=== PATIENT | male | born 1995 | race Caucasian/White ===

== ENCOUNTER 2017-02-14 14:54 | Emergency (ER) | payer OTHER ==
[2017-02-14 15:02] VITALS: BMI 25.8
[2017-02-14] MEDS ORDERED: ACETAMINOPHEN 325 MG TABLET (FP) PO ONE (15:05)
--- NOTE | 2017-02-14 15:59 | PDOC ---
History of Present Illness - General Chief Complaint: Cold Symptoms Stated Complaint: FEVER, TONSILITIS, DIZZINESS Time Seen by Provider: 02/14/17 15:40 History Source: Patient, Family - History of Present Illness Timing/Duration: reports: yesterday Associated Symptoms: reports: fever/chills, sore throat. denies: cough, facial pain, nasal congestion, shortness of breath Past History - Past Medical History Allergies/Adverse Reactions: Allergies Allergy/AdvReac Type Severity Reaction Status Date / Time No Known Allergies Allergy Verified 02/14/17 15:00 Home Medications: Ambulatory Orders Azithromycin [Zithromax 250mg Tablets -] 250 mg PO UTDICT #6 tab 02/14/17 Ibuprofen [Motrin -] 800 mg PO Q6H #30 tablet 02/14/17 Asthma: Yes (as an ) - Surgical History Appendectomy: Yes - Immunization History Immunization Up to Date: Yes - Psycho/Social/Smoking Cessation Hx Anxiety: No Suicidal Ideation: No Smoking Status: No Smoking History: Never smoked Have you smoked in the past 12 months: No Number of Cigarettes Smoked Daily: 0 Hx Alcohol Use: No Drug/Substance Use Hx: No Substance Use Type: None Review of Systems - Review of Systems Constitutional: Yes: Fever HEENTM: Yes: Throat Pain. No: Ear Pain Respiratory: No: Cough, Shortness of Breath Cardiac (ROS): No: Chest Pain ABD/GI: No: Diarrhea, Nausea, Vomiting : No: Burning, Dysuria, Discharge, Frequency, Flank Pain Musculoskeletal: Yes: Back Pain *Physical Exam - Vital Signs Last Vital Signs Temp Pulse Resp BP Pulse Ox 102.9 F H 106 H 18 112/82 99 02/14/17 15:00 02/14/17 15:00 02/14/17 15:00 02/14/17 15:00 02/14/17 15:00 - Physical Exam General Appearance: Yes: Appropriately Dressed. No: Apparent Distress HEENT: positive: EOMI, Normal Voice, TMs Normal, Tonsillar Exudate (w/ b/l tonsillar enlargement, no uvular deviation). negative: Scleral Icterus (R), Scleral Icterus (L) Neck: positive: Supple. negative: Lymphadenopathy (R), Lymphadenopathy (L) Respiratory/Chest: positive: Lungs Clear, Normal Breath Sounds. negative: Respiratory Distress Cardiovascular: positive: Regular Rate, S1, S2 Gastrointestinal/Abdominal: positive: Soft. negative: Tender Musculoskeletal: negative: CVA Tenderness Integumentary: positive: Dry, Warm Neurologic: positive: Fully Oriented, Alert, Normal Mood/Affect ED Treatment Course - LABORATORY CBC & Chemistry Diagram: 02/14/17 17:15 02/14/17 17:15 - Medications Given in the ED: ED Medications Discontinued Medications Generic Name Dose Route Start Last Admin Trade Name Yara PRN Reason Stop Dose Admin Acetaminophen 650 mg 02/14/17 15:05 02/14/17 15:06 Tylenol - PO 02/14/17 15:06 650 mg NOW ONE Administration Medical Decision Making - Medical Decision Making 02/14/17 15:47 02/14/17 16:13 21-year-old male, h/o asthma in childhood, mono several years ago, here with sore throat with fever, malaise and body aches including lower back pain since yesterday. No neck stiffness, PENA, dizziness or photophobia. Denies sick contacts. Also c/o ?dark urine. No urinary frequency, hematuria, flank pain, abd pain, penile discharge, n/v. No h/o STDs. Denies new sexual partner See exam Presumed strep Febrile to 102 w/ b/l tonsillar enlargement w/ exudates No e/o FLOW COORDINATOR -antipyretic -rapid strep ? Dark urine No penile dc No h/o stds No h/o renal stone No cvat and abd benign -ua/cx/gc/chlam pending 02/14/17 18:04 Rapid strep and flu neg. Wbc 16 w/ isolated bili of 1.5, mono still pending, ua neg for infxn and rest of labs unremarkable. Will rpt vitals 02/14/17 16:45 02/14/17 16:48 02/14/17 18:02 02/14/17 18:04 02/14/17 18:32 Vital improved and pt reports feeling better. Cowley still pending, family does not wish to wait for results. No other obvious source of infxn at this time, abd remains benign (of note, pt had appendectomy), chest/lungs clear and no cp/ sob or s/o meningismus. Case d/w Dr Ashraf who rec abx for possible strep given that throat cx still pending. 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 02/14/17 18:44 02/14/17 18:49 *DC/Admit/Observation/Transfer Diagnosis at time of Disposition: Pharyngitis Qualifiers: Pharyngitis/tonsillitis etiology: unspecified etiology Qualified Code(s): J02.9 - Acute pharyngitis, unspecified - Discharge Dispostion Disposition: HOME Condition at time of disposition: Improved - Prescriptions Prescriptions: Ibuprofen [Motrin -] 800 mg PO Q6H #30 tablet Azithromycin [Zithromax 250mg Tablets -] 250 mg PO UTDICT #6 tab - Referrals Referrals: Brennon Chapman MD [Primary Care Provider] - - Patient Instructions Printed Discharge Instructions: DI for Viral Syndrome, Strep Throat Additional Instructions: You were treated w/ azithromycin in the case that your throat culture comes back positive in 2 days. Rest, drink plenty of fluids and take azithromycin antibitiocs and motrin. Please call ED tomorrow at [phone] for mono results and if positive, rest, drink fluids, motrin for pain/fever and no sports for 3 weeks to avoid splenic rupture Please follow up with your PMD Return to ED for worsening of symptoms
[2017-02-14] MEDS ORDERED: IBUPROFEN 400 MG TABLET (FP) PO ONE ×2 (16:00→16:12)
[2017-02-14 16:40] LABS: URINE APPEARANCE CLEAR; URINE BILIRUBIN NEGATIVE (NEGATIVE); URINE COLOR DKYELLOW; URINE GLUCOSE (UA) NEGATIVE (NEGATIVE); URINE KETONE TRACE (NEGATIVE); URINE LEUK ESTERASE NEGATIVE (NEGATIVE); URINE NITRITE NEGATIVE (NEGATIVE); URINE UROBILINOGEN 4.0 E.U/dl E.U./dl (0.2-1.0)
[2017-02-14 16:41] LABS: URINE BLOOD 1+ (NEGATIVE); URINE PROTEIN 2+ (NEGATIVE)
[2017-02-14 16:42] LABS: URINE MUCUS RARE; URINE RBC 27 /hpf (0-3); URINE WBC 10 /hpf (3-5)
[2017-02-14 17:23] LABS: BASOPHIL 0.3 % (0-2.0); EOSINOPHIL 0.1 % (0-4.5); MCH 29.9 pg (25.7-33.7); MCHC 34.2 g/dl (32.0-35.9); MEAN CELL VOLUME 87.3 fl (80-96); MEAN PLT VOLUME 7.6 fl (7.5-11.1); NEUTROPHILS 85.1 % (42.8-82.8); PLATELET COUNT 223 K/MM3 (134-434); RDW 14.2 % (11.9-15.9); WHITE BLOOD COUNT 16.1 K/mm3 (4.0-10.0)
[2017-02-14 17:58] LABS: ALBUMIN 4.4 g/dl (3.4-5.0); ANION GAP 10 (8-16); CO2 26 mmol/L (21-32); CREATININE 1.1 mg/dL (0.7-1.3); GLUCOSE,RANDOM 95 mg/dL (74-106); SGOT/AST 12 U/L (15-37); SGPT/ALT 15 U/L (12-78)
[2017-02-14 18:00] LABS: ALK PHOS 87 U/L (45-117); BILIRUBIN,TOTAL 1.5 mg/dL (0.2-1.0); TOT PROT 7.7 g/dl (6.4-8.2)
[2017-02-14 18:41] VITALS: BP 129/75; PULSE 74; TEMP 98.1
== END 2017-02-14 18:56 | disposition home or self-care (01) ==
LOC: JER 14:54
DX: J02.9 Acute pharyngitis, unspecified (principal)
CPT/HCPCS: 36415; 80053; 81003; 81015; 85025; 86308; 87070; 87086; 87430; 87491; 87591; 87804; 99281-25

== ENCOUNTER 2017-11-25 16:08 | Emergency (ER) | payer OTHER ==
--- NOTE | 2017-11-25 16:25 | PDOC ---
Rapid Medical Evaluation Chief Complaint: Cold Symptoms Time Seen by Provider: 11/25/17 16:21 Medical Evaluation: Allergies Allergy/AdvReac Type Severity Reaction Status Date / Time No Known Allergies Allergy Verified 02/14/17 15:00 11/25/17 16:21 I have performed a brief in-person evaluation of this patient. The patient presents with a chief complaint of: Cough, fever last night, Tmax of 104. Temp 99.5 now took theraflu. Symptoms for 4 days. Pertinent physical exam findings: Lungs clear, nose clear, posterior pharynx with no erythema or exudate. I have ordered the following: None The patient will proceed to [facility] for further evaluation.
[2017-11-25 16:26] VITALS: BP 123/72; PULSE 74; TEMP 99.5; BMI 21.7
[2017-11-25] MEDS ORDERED: IBUPROFEN 600 MG TABLET (FP) PO ONE (16:39)
[2017-11-25] MEDS ORDERED: ALBUTEROL SO4 0.083% IH SOL 2.5 MG/3 ML VIAL.NEB. NEB PRN (16:39)
--- NOTE | 2017-11-25 16:45 | PDOC ---
History of Present Illness - General Chief Complaint: Cold Symptoms Stated Complaint: COUGHING Time Seen by Provider: 11/25/17 16:21 History Source: Patient Exam Limitations: No Limitations - History of Present Illness Initial Comments: 11/25/17 16:39 21 yr male with cough sore throat body aches for 3 days. no fever no sick contacts. Past History - Past Medical History Allergies/Adverse Reactions: Allergies Allergy/AdvReac Type Severity Reaction Status Date / Time No Known Allergies Allergy Verified 02/14/17 15:00 Home Medications: Ambulatory Orders Albuterol Sulfate Inhaler - [Ventolin HFA Inhaler -] 1 - 2 inh PO QID #1 inhaler 11/25/17 Asthma: Yes (as an infant) COPD: No Other medical history: bronchitis - Surgical History Appendectomy: Yes - Immunization History Immunization Up to Date: Yes - Suicide/Smoking/Psychosocial Hx Smoking Status: No Smoking History: Never smoked Have you smoked in the past 12 months: No Number of Cigarettes Smoked Daily: 0 Information on smoking cessation initiated: No Hx Alcohol Use: No Drug/Substance Use Hx: No Substance Use Type: None Respiratory Specific PMHX - Complaint Specific PMHX Bronchitis: Yes Review of Systems - Review of Systems Able to Perform ROS?: Yes Is the patient limited Cypriot proficient: No Constitutional: No: Symptoms Reported HEENTM: Yes: Throat Pain. No: Symptoms Reported Respiratory: Yes: Symptoms reported, Cough Cardiac (ROS): No: Symptoms Reported ABD/GI: No: Symptoms Reported : No: Symptoms Reported Musculoskeletal: No: Symptoms Reported Integumentary: No: Symptoms Reported *Physical Exam - Vital Signs Last Vital Signs Temp Pulse Resp BP Pulse Ox 99.5 F 74 17 123/72 99 11/25/17 16:21 11/25/17 16:21 11/25/17 16:21 11/25/17 16:21 11/25/17 16:21 - Physical Exam General Appearance: Yes: Nourished, Appropriately Dressed HEENT: positive: EOMI, MEAGAN, Normal ENT Inspection, TMs Normal, Pharynx Normal Neck: positive: Supple. negative: Lymphadenopathy (R), Lymphadenopathy (L) Respiratory/Chest: positive: Lungs Clear, Normal Breath Sounds. negative: Chest Tender, Rhonchi, Stridor, Wheezing Cardiovascular: positive: Regular Rhythm, Regular Rate Gastrointestinal/Abdominal: positive: Normal Bowel Sounds, Soft Musculoskeletal: positive: Normal Inspection Extremity: positive: Normal Capillary Refill, Normal Inspection Integumentary: positive: Normal Color, Dry, Warm Neurologic: positive: Fully Oriented, Alert, Normal Mood/Affect, Normal Response , Motor Strength /5 Medical Decision Making - Medical Decision Making 11/25/17 16:47 cc: cough sore throat body aches afebrile non toxic lungs CTA will check rapid strep *DC/Admit/Observation/Transfer Diagnosis at time of Disposition: Upper respiratory infection, viral - Discharge Dispostion Disposition: HOME Condition at time of disposition: Good - Prescriptions Prescriptions: Albuterol Sulfate Inhaler - [Ventolin HFA Inhaler -] 1 - 2 inh PO QID #1 inhaler - Referrals Referrals: Brennon Chapman MD [Primary Care Provider] - - Patient Instructions Additional Instructions: drink pleanty of fluids take ibuprofen 600mg every 6hrs for fever, body aches or pain use the inhaler for coughing as directed and needed increase vitamin C and zinc in your diet gargle with warm salt water 4-5 times a day can help with sore throat negative strep swab today - Post Discharge Activity
== END 2017-11-25 17:48 | disposition home or self-care (01) ==
LOC: JERFT 16:08
PROC: 3E0F7GC Introduction of Other Therapeutic Substance into Respiratory Tract, Via Natural or Artificial Opening (ICD-10-PCS; principal; 2017-11-25)
DX: J06.9 Acute upper respiratory infection, unspecified (principal)
CPT/HCPCS: 87070; 87430; 94640; 99281-25

== ENCOUNTER 2018-10-24 22:17 | Emergency (ER) | payer OTHER ==
[2018-10-24 22:30] VITALS: BP 135/81; PULSE 70; TEMP 98.5; BMI 25.0
--- NOTE | 2018-10-24 23:54 | PDOC ---
History of Present Illness - General History Source: Patient Exam Limitations: No Limitations - History of Present Illness Initial Comments: 10/24/18 23:55 The patient is a 22 year old male, with no significant past medical history, who presents to the emergency department with, 2 weeks of a cough. Patient was evaluated at urgent care for a runny nose, cough, and congestion 2 weeks ago where he had a negative strep and flu test. Patient endorses intermittent fevers with a productive cough, headache, and body aches in the mornings. 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 He denies any recent dizziness. He denies any recent nausea, vomit, diarrhea or constipation. He denies any recent dysuria, frequency, urgency or hematuria. Allergies: NKA Past surgical history: Appendectomy. Social History: Former smoker. Denies EtOH use and recreational drug use. Primary Care Physician: Dr. Brennon Chapman <Aleksandar Eduardo - Last Filed: 10/24/18 23:55> <Antonieta Ashraf - Last Filed: 10/25/18 00:42> - General Chief Complaint: Respiratory Stated Complaint: COLD SYMPTOMS Time Seen by Provider: 10/24/18 23:15 Past History <Aleksandar Eduardo - Last Filed: 10/24/18 23:55> - Past Medical History Asthma: Yes (as an ) COPD: No - Surgical History Appendectomy: Yes - Immunization History Immunization Up to Date: Yes - Suicide/Smoking/Psychosocial Hx Smoking Status: No Smoking History: Never smoked Have you smoked in the past 12 months: No Number of Cigarettes Smoked Daily: 0 Information on smoking cessation initiated: No Hx Alcohol Use: No Drug/Substance Use Hx: No Substance Use Type: None <Antonieta Ashraf - Last Filed: 10/25/18 00:42> - Past Medical History Allergies/Adverse Reactions: Allergies Allergy/AdvReac Type Severity Reaction Status Date / Time No Known Allergies Allergy Verified 10/24/18 22:30 Home Medications: Ambulatory Orders Albuterol Sulfate Inhaler - [Ventolin HFA Inhaler -] 1 - 2 inh PO QID #1 inhaler 11/25/17 Respiratory Specific PMHX - Complaint Specific PMHX Bronchitis: Yes <Antonieta Ashraf - Last Filed: 10/25/18 00:42> Review of Systems - Review of Systems Able to Perform ROS?: Yes Comments:: 10/24/18 23:55 CONSTITUTIONAL: Present: Fever. Body aches. EYES: Absent: visual changes ENT: Absent: ear pain, no sore throat CARDIOVASCULAR: Absent: chest pain, no palpitations RESPIRATORY: Present: Cough. GI: Absent: abdominal pain, no nausea, no vomiting, no constipation, no diarrhea GENITOURINARY: Absent: dysuria, no frequency, no hematuria MUSKULOSKELETAL: Absent: back pain, no arthralgia, no myalgia SKIN: Absent: rash NEURO: Present: headache All Other Systems: Reviewed and Negative <Aleksandar Eduardo - Last Filed: 10/24/18 23:55> *Physical Exam - Vital Signs Last Vital Signs Temp Pulse Resp BP Pulse Ox 98.5 F 70 16 135/81 100 10/24/18 22:28 10/24/18 22:28 10/24/18 22:28 10/24/18 22:28 10/24/18 22:28 - Physical Exam Comments: 10/24/18 23:56 GENERAL: Well developed, well nourished. Awake and alert. No acute distress. HEENT: Normocephalic, atraumatic. PERRLA, EOMI. No conjunctival pallor. Sclera are non- icteric. Moist mucous membranes. Oropharynx is clear. NECK: Supple. Full ROM. No JVD. Carotid pulses 2+ and symmetric, without bruits. No thyromegaly. No lymphadenopathy. CARDIOVASCULAR: Regular rate and rhythm. No murmurs, rubs, or gallops. Distal pulses are 2+ and symmetric. PULMONARY: No evidence of respiratory distress. Lungs clear to auscultation bilaterally. No wheezing, rales or rhonchi. ABDOMINAL: Soft. Non-tender. Non-distended. No rebound or guarding. No organomegaly. Normoactive bowel sounds. MUSCULOSKELETAL Normal range of motion at all joints. No bony deformities or tenderness. No CVA tenderness. EXTREMITIES: No cyanosis. No clubbing. No edema. No calf tenderness. SKIN: Warm and dry. Normal capillary refill. No rashes. No jaundice. NEUROLOGICAL: Alert, awake, appropriate. Cranial nerves 2-12 intact. No focal neurological deficits. Gait is normal without ataxia. PSYCHIATRIC: Cooperative. Good eye contact. Appropriate mood and affect. <Aleksandar Eduardo - Last Filed: 10/24/18 23:55> - Vital Signs Last Vital Signs Temp Pulse Resp BP Pulse Ox 98.5 F 70 16 135/81 100 10/24/18 22:28 10/24/18 22:28 10/24/18 22:28 10/24/18 22:28 10/24/18 22:28 <Antonieta Ashraf - Last Filed: 10/25/18 00:42> Moderate Sedation - Procedure Monitoring Vital Signs: Procedure Monitoring Vital Signs Temperature 98.5 F 10/24/18 22:28 Pulse Rate 70 10/24/18 22:28 Respiratory Rate 16 10/24/18 22:28 Blood Pressure 135/81 10/24/18 22:28 O2 Sat by Pulse Oximetry (%) 100 10/24/18 22:28 <Aleksandar Eduardo - Last Filed: 10/24/18 23:55> - Procedure Monitoring Vital Signs: Procedure Monitoring Vital Signs Temperature 98.5 F 10/24/18 22:28 Pulse Rate 70 10/24/18 22:28 Respiratory Rate 16 10/24/18 22:28 Blood Pressure 135/81 10/24/18 22:28 O2 Sat by Pulse Oximetry (%) 100 10/24/18 22:28 <Antonieta Ashraf - Last Filed: 10/25/18 00:42> ED Treatment Course - RADIOLOGY Radiology Studies Ordered: Category Date Time Status CHEST PA & LAT [RAD] Stat Radiology 10/24/18 23:26 Taken <Antonieta Ashraf - Last Filed: 10/25/18 00:42> *DC/Admit/Observation/Transfer - Attestations Scribe Attestion: 10/24/18 23:56 Documentation prepared by Aleksandar Eduardo, acting as medical housekeeper for Antonieta Ashraf MD. <Aleksandar Eduardo - Last Filed: 10/24/18 23:55> <Antonieta Ashraf - Last Filed: 10/25/18 00:42> Diagnosis at time of Disposition: Upper respiratory infection, viral, Cough - Discharge Dispostion Disposition: HOME Condition at time of disposition: Good - Referrals Referrals: Brennon Chapman MD [Primary Care Provider] - - Patient Instructions Printed Discharge Instructions: DI for Cough -- Adult Additional Instructions: Please drink plenty of fluid,stay hydrated Take tylenol or motrin for body aches Take OTC nasal decongestants Use inhaler for any wheezing Follow up with Dr Chapman Return for any signs of respiratory distress - Post Discharge Activity
== END 2018-10-25 01:06 | disposition home or self-care (01) ==
LOC: JERFT 22:17 → JER 22:17
DX: J06.9 Acute upper respiratory infection, unspecified (principal); B97.89 Other viral agents as the cause of diseases classified elsewhere
CPT/HCPCS: 71046-TC-FY; 99281-25

== ENCOUNTER 2021-10-12 10:50 | Emergency (ER) | payer OTHER ==
[2021-10-12 11:13] VITALS: BP 125/82; PULSE 60; TEMP 97.6; BMI 34.4
[2021-10-12] MEDS ORDERED: DEXAMETHASONE LIQUID 0.5 MG/5 ML PO ONE (12:36)
[2021-10-12] MEDS ORDERED: DEXAMETHASONE SOD PHOSPHATE 10 MG/1 ML VIAL ONE (12:38)
== END 2021-10-12 12:42 | disposition home or self-care (01) ==
LOC: JERFT 10:50
DX: M94.0 Chondrocostal junction syndrome [Tietze] (principal); J98.01 Acute bronchospasm
CPT/HCPCS: 71046-TC-FY; 93005; 93010; 99284-25

== ENCOUNTER 2022-01-05 09:28 | Emergency (ER) | payer OTHER ==
[2022-01-05 09:33] VITALS: BP 121/80; PULSE 72; TEMP 98.4; BMI 31.9
[2022-01-05] MEDS ORDERED: IBUPROFEN 400 MG TABLET (FP) PO ONE ×2 (09:57→10:20)
== END 2022-01-05 10:53 | disposition home or self-care (01) ==
LOC: JERFT 09:28
DX: S33.5XXA Sprain of ligaments of lumbar spine, initial encounter (principal); S46.911A Strain of unspecified muscle, fascia and tendon at shoulder and upper arm level, right arm, initial encounter
CPT/HCPCS: 71111-TC-FY; 99284-25

== ENCOUNTER 2023-10-11 10:03 | Emergency (ER) | payer OTHER ==
[2023-10-11 10:14] VITALS: BP 153/82; PULSE 74; RESP 20; TEMP 97.7; BMI 30.4
[2023-10-11] MEDS ORDERED: valACYclovir HCL 500 MG TABLET (FP) PO ONE (10:47)
[2023-10-11] MEDS ORDERED: predniSONE 20 MG TABLET (UD) PO ONE (10:48)
[2023-10-11] MEDS ORDERED: ACETAMINOPHEN 325 MG TABLET (FP) PO ONE (10:50)
[2023-10-11] MEDS ORDERED: ACETAMINOPHEN 1000 MG/100 ML BAG IVPB ONE (10:53)
[2023-10-11] MEDS ORDERED: valACYclovir HCL 500 MG TABLET (FP) ONE (10:53)
[2023-10-11] MEDS ORDERED: predniSONE 20 MG TABLET (UD) ONE (10:53)
[2023-10-11] MEDS ORDERED: METOCLOPRAMIDE HCL INJECTION 10 MG/2 ML VIAL IVPUSH ONE (10:54)
[2023-10-11] MEDS ORDERED: ARTIFICIAL TEARS (POLYVINYL ALCOHOL) OPTH DROPS OU ONE (10:54)
[2023-10-11] MEDS ORDERED: SODIUM CHLORIDE 0.9% 500 ML INFUS.BAG IV ONE (10:56)
[2023-10-11] MEDS ORDERED: METOCLOPRAMIDE HCL INJECTION 10 MG/2 ML VIAL ONE (11:02)
[2023-10-11] MEDS ORDERED: ACETAMINOPHEN INJECTION 100 ML IVPB ONE (11:03)
[2023-10-11 11:27] LABS: HEMATOCRIT 44.2 % (35.4-49); HEMOGLOBIN 14.8 GM/dL (11.7-16.9); MCHC 33.5 g/dl (32.0-35.9); MEAN CELL VOLUME 83.5 fl (80-96); MEAN PLT VOLUME 7.7 fl (7.5-11.1); PLATELET COUNT 305 10^3/uL (134-434); RDW 13.5 % (11.9-15.9); WHITE BLOOD COUNT 6.5 K/mm3 (4.0-10.0)
[2023-10-11 12:04] LABS: ALBUMIN 4.6 g/dl (3.4-5.0); BLOOD UREA NITROGEN 16.9 mg/dL (7-18); CALCIUM 9.8 mg/dL (8.5-10.1)
[2023-10-11 12:07] LABS: CREATININE 1.1 mg/dL (0.55-1.3)
[2023-10-11 12:09] LABS: BILIRUBIN,TOTAL 0.5 mg/dL (0.2-1); TOT PROT 8.1 g/dl (6.4-8.2)
== END 2023-10-11 13:09 | disposition home or self-care (01) ==
LOC: JER 10:03
PROC: 3E033NZ Introduction of Analgesics, Hypnotics, Sedatives into Peripheral Vein, Percutaneous Approach (ICD-10-PCS; principal; 2023-10-11)
PROC: 3E033NZ Introduction of Analgesics, Hypnotics, Sedatives into Peripheral Vein, Percutaneous Approach (ICD-10-PCS; 2023-10-11)
DX: R20.2 Paresthesia of skin (principal); R51.9 Headache, unspecified; G51.0 Bell's palsy
CPT/HCPCS: 36415; 80053; 85027; 99284-25